=== PATIENT | female | born 1955 | race Caucasian/White ===

== ENCOUNTER → 2018-07-18 | Outpatient (CLI) | payer OTHER ==
--- NOTE | 2018-07-18 12:32 | PCVCIMAG ---
APPROVED REPORT Study performed: 07/18/2018 11:37:52 Exam: Stress Echocardiogram Indication: Hyperlipidemia, Hypertension Patient Location: Echo lab Stress Nurse: Veronica Avila RN Status: routine Ht: 5 ft 7 in HR: 94 bpm BP: 110/70 mmHg Rhythm: NSR Medical History Medical History: Hyperlipidemia, HTN, pre op clearance Procedure The patient underwent an Exercise Stress Test using the Tutu Protocol. Blood pressure, heart rate, and EKG were monitored. An Echocardiogram was performed by communications technician in four stages in quad fashion. At peak stress, four selected images were obtained and placed side by side with resting images for comparison. Stress Test Details Stress Test: Exercise stress testing was performed using a Tutu protocol. HR Resting HR: 94 bpmMax Heart Rate (APMHR): 157 bpm Max HR Achieved: 144 bpmTarget HR (85% APMHR): 133 bpm % of APMHR: 91 HR response to stress: Normal HR response to stress BP Resting BP: 110/70 mmHg Max BP: 160/70 mmHg Recovery BP: 146/68 mmHg ECG Resting ECG: Sinus Rhythm, nonspecific ST-T abnormalities Stress ECG: Sinus Rhythm Arrhythmia: APC's Recovery ECG: Sinus Rhythm Recovery Arrhythmia: VPC, SVT Clinical Reason for Termination: Maximal effort Exercise duration: 7 min sec Highest Stage Achieved: Stage 3: 3.4 mph at 14% grade. Exercise capacity: 10.10 METs Overall Exercise Capacity for Age: Normal Pre-Stress Echo The resting Echocardiogram showed normal left ventricular contractility with an estimated Ejection Fraction of about 55-60%. Post-Stress Echo The stress Echocardiogram showed normal left ventricular contractility with an estimated Ejection Fraction of about 60-65%. Conclusion Clinical Response: Non-ischemic Exercise Capacity: Average Stress ECG Response: Non-ischemic Stress Echo Images: Non-ischemic Patient is cleared for surgery. Other Information Study Quality: Good <Conclusion> Patient is cleared for surgery.
== END | disposition home or self-care (01) ==
LOC: PCVCIMAG 13:00
PROVIDERS: ATTEND Internal Medicine Cardiovascular Disease
DX: Z01.818 Encounter for other preprocedural examination (principal)
CPT/HCPCS: 93325; 93351